=== PATIENT | female | born 1990 | race Caucasian/White ===

== ENCOUNTER 2025-08-28 02:16 | Inpatient (IN) | payer BC, SELFPAY ==
[2025-08-28] VITALS (99 sets, daily range): BP systolic 95–163; BP diastolic 54–113; PULSE 64–124; RESP 15–18; TEMP 35.9–37.4; O2SAT 91–100; BMI 27.3
--- NOTE | 2025-08-28 02:27 | ED.GENADUL_ITS ---
Discharge Plan Disposition Patient Disposition: Admit to [facility] Condition: Stable Discharge Details Clinical Impression: Third trimester , Uterine contractions Admit Date/Time: 08/28/25 02:36 Admit Provider: Tianna Salcedo Attending Provider: Tianna Salcedo Primary Care Provider: Unknown,Unknown ED Provider: Sage Agarwal Discharge Data Discharge Date/Time-TO BE ENTERED AT DEPARTURE: 08/28/25 02:41 HPI General Mode of arrival: EMS . Date/Time Provider Initiated Documentation: 08/28/25 02:27 . Limitations to Documentation: no limitations . Information obtained by: patient, EMS and RN notes reviewed . HPI Narrative: Patient presenting to ED by ambulance with bloody show and contractions at 40 weeks gestation. Patient is G3, P2. She has been followed at [facility] and was planning on delivering at [facility] but had moved toward this area. She was seen at [facility] 2 days ago and reports being at 4 cm and 60% effaced. She passed a large clot and had some bleeding about an hour ago with onset of contractions. She had called down to [facility]. Called EMS given the large clot and blood that she initially passed. She was transported here as closest facility with labor and delivery. We had contacted OB, Dr. Salcedo, who was present in the ED on arrival of patient with EMS. 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 VS per triage. HEENT: NC/AT. Normal facial exam. Neck: Supple. Trachea midline. Lungs: Normal respiratory effort. Cor: RRR without murmur. Good radial pulses. GI: Gravid abdomen, contractions present. Neuro: A+O x 3. Normal speech, mentation. Cranial nerves II - XII grossly int act. No gross motor or sensory deficit. Course Vital Signs Vital signs: Vital Signs Temperature 99.3 F 08/28/25 02:13 Pulse 110 H 08/28/25 02:13 Respiratory Rate 18 08/28/25 02:13 Blood Pressure 163/113 H 08/28/25 02:13 Pulse Oximetry 98 08/28/25 02:13 Temperature 99.3 F 08/28/25 02:13 Temperature Source Temporal Artery Scan 08/28/25 02:13 Pulse 110 H 08/28/25 02:13 Respiratory Rate 18 08/28/25 02:13 Blood Pressure 163/113 H 08/28/25 02:13 Pulse Oximetry 98 08/28/25 02:13 Oxygen Delivery Method Room Air 08/28/25 02:13 Oxygen Flow Rate 0 08/28/25 02:13 Medical Decision Making Patient met in ED on arrival by myself and OB, Dr. Salcedo. FHR normal. U/S by Dr. Salcedo with adequate fluid and baby head down. Patient will be moved to L&D for further management. She is stable. Labs drawn and sent on arrival. PFSH All Active Problems (Updated 08/28/25 @ 02:33 by Sage Agarwal MD) Uterine contractions (Acute) Third trimester (Acute) Social History Smoking risk assessment performed?: No
[2025-08-28 03:00] LABS: Abs Immature Grans 0.07 10^3/uL (0.0-0.06); HCT 36.3 % (36.0-46.0); HGB 12.4 g/dL (11.2-15.7); Immature Grans % 0.8 %; MCH 32.2 pg (27.0-33.0); MCHC 34.2 % (32.0-36.0); MCV 94 fL (80-95); MPV 10.7 fL (8.0-11.0); Platelet Count 213 10^3/uL (130-400); RBC 3.85 10^6/uL (3.93-5.22); RDW 13.1 % (11.7-14.6); RDW-SD 45.2 fL; WBC 8.92 10^3/uL (4.4-10.8)
[2025-08-28] MEDS: Penicillin G POT. 5,000,000 UNITS in Normal Saline 100 ML 200 UNITS IVPB (03:00)
[2025-08-28] MEDS: Lactated Ringers 1,000 ML 125 ML IV (03:05)
[2025-08-28 03:29] LABS: ALT 9 U/L (10-49); AST 16 U/L (<34); Albumin 3.7 g/dL (3.2-5.0); Alkaline Phosphatase 241 U/L (46-116); Anion Gap 10.8 mmol/L (3-11); BUN 13 mg/dL (9-23); Bilirubin, Total 0.4 mg/dL (0.2-1.2); CO2 21.2 mmol/L (20.0-31.0); Calcium 8.6 mg/dL (8.3-10.6); Chloride 107 mmol/L (98-107); Glucose 86 mg/dL (74-106); Potassium 3.7 mmol/L (3.5-5.1); Sodium 139 mmol/L (136-145); Total Protein 6.3 g/dL (5.7-8.2)
--- NOTE | 2025-08-28 03:37 | HPE_ITS ---
Date of service: 08/28/25 Time of Service: 03:37 Assessment and Plan Assessment and plan (1) 40 weeks gestation of : Status: Acute Assessment and plan: 35-year-old -0-0-2 ( x 1, x 1) at 40 weeks is dated by LMP equal to 10 wk US (HERMILO: 08/25/2025) - Rh+ / Rub I / VZV unknown / GBS positive - complicated by AMA (Panorama testing low risk; normal anatomy scan at [facility] [place] h/o (w/subsequent ), gestational HTN, GBS positive status - SROM to serosanguinous fluid at 0030, spontaneous labor, cephalic presentation - Desires epidural - Posterior placenta w/resolution of low lying status - Regular care at [facility] [place] - - - - - - - - - - - - - - - - - - - - 08/28/2025 (Denisse): Patient presents to our facility and appears to be frankly ruptured as a roughly midnight. She appears to be in an reassuring labor pattern and she verbalizes a strong, independent desire for trial of labor after . She is noted to be overall healthy with minimal complications in her . She has a posterior placenta and is a good candidate for TOLAC. She independently expresses understanding of the risks versus the benefits of section versus trial of labor. We discussed the potential for transfer to [facility] given this is where she has been receiving her care; patient is noted to be ruptured with bloody fluid and is in a reassuring labor pattern. Patient declines transfer. We will expectantly manage her labor and she will receive an epidural. OR team and anesthesia as well as myself and optical instrument repairer for potential assistance as needed have all been called in to remain in house while patient labors. Continuous monitoring. Vitals per protocol. Preeclampsia labs ordered. Penicillin ordered for GBS prophylaxis. Anticipate vaginal delivery. - - - - - - - - - - - - - - - - - - - - (2) History of section: Status: Chronic (3) History of vaginal after : Status: Acute (4) Positive GBS test: Status: Acute (5) Advanced maternal age in multigravida: Status: Acute (6) Gestational hypertension: Status: Acute OB-HPI Labor/Delivery History of Present Illness Reason for Visit: Trial of Labor Chief Complaint: Uterine Contractions; Suspected Rupture of Membranes , Associated Signs and Symptoms of Suspected ROM: frankly ruptured to serosanguineous fluid. History of Present Narrative: 35-year-old -0-0-2 ( x 1, x 1) at 40 weeks is dated by LMP equal to 10 wk US (HERMILO: 08/25/2025) presented to the emergency department this evening by way of ambulance for concerns surrounding vaginal bleeding and contra ctions. Patient states she had a large clot around midnight followed by a gush of bloody fluid. She has been getting routine care at [facility], and she did attempt to reach out to their on-call team; however, she ultimately came to our hospital based on recommendation for presentation to the nearest hospital for expeditious assessment. Record suggest patient has a history of low-lying placenta diagnosed early in the , though resolved on subsequent ultrasounds; placenta is also noted to be posterior. is further complicated by advanced maternal age as well as concerns for possible gestational hypertension; at a visit on August 23, the patient was noted to have modestly elevated blood pressures. She was reassessed 4 hours later and was found to be normotensive. An assessment was repeated 2 days later and she remained normotensive. Patient denies any history of chronic hypertension nor she having any signs or symptoms of preeclampsia. Record suggest a history of gestational diabetes and a prior ; however, testing in this has been appropriate. She reports that her first was done for prolonged labor, but that she had a successful with her second and delivered quickly. She denies any history of hemorrhage or concerning tears. Review of Systems Narrative: Review of system is negative except for that mentioned in the HPI and remaining note. PFSH All Active Problems (Updated 08/28/25 @ 03:49 by Tianna Salcedo DO) Gestational hypertension (Acute) Advanced maternal age in multigravida (Acute) Positive GBS test (Acute) History of vaginal after (Acute) History of section (Chronic) 40 weeks gestation of (Acute) Uterine contractions (Acute) Third trimester (Acute) Social History Smoking risk assessment performed?: No Meds Allergies and Home Medications Allergies Allergy/AdvReac Type Severity Reaction Status Date / Time No Known Allergies Allergy Unverified 08/28/25 02:22 Home Medications ?Medication ?Instructions ?Recorded ?Confirmed ?Type famotidine 20 mg tablet (Acid 20 mg PO DAILY 08/28/25 08/28/25 History [employer]ing [employer] Supervisor (famotidine)) loratadine 10 mg tablet (Claritin) 10 mg PO DAILY 08/0308/28/25 History vitamin-ferrous sulfate tab PO 08/28/25 Hist ory 27 mg iron-folic acid 0.8 mg tablet Exam Physical Exam Vital signs: Temp Pulse Resp BP Pulse Ox 98.0 F 116 H 18 132/85 100 08/28/25 03:06 08/28/25 03:37 08/28/25 03:06 08/28/25 03:33 08/28/25 03:37 Narrative: General: Well-nourished female in no immediate distress; uncomfortable with contractions Pulm: No overt respiratory distress; able to speak in complete sentences Abdomen: Gravid, nontender Extremities: No overt swelling Psych: Cooperative, appropriate SVE: 4-5/80/-2; cephalic. Serosanguineous discharge appreciated on exam. Complete transabdominal ultrasound confirms cephalic presentation and subjectively low fluid FHT: Category 1 [place] every 2 to 4; without augmentation Detailed Labor and Delivery Exam Dilation: 4.5 Effacement (%): 80 station: -2 Cervix position: mid Consistency: soft Graves Score: Cervical Points Exam 0 1 2 3 Dilation Closed 1-2cm 3-4 cm 5-6cm Effacement 0-30% 40-50% 60-70% 80% Consistency Firm Medium Soft Station -3 -2 -1,0 +1,+2 Position Posterior Mid Anterior GRAVES Score(Cervical Ripeness Score): 9 Amniotic Membrane Status: Ruptured Rupture Method: Spontaneous Amniotic Fluid: Bloody Monitor Mode: External Contraction Frequency(min): q2-4 Contraction Duration(sec): appropriate Contraction Intensity: Moderate Fetus A Heart Rate Baseline: 120 Monitor Accelerations: 15 X 15 Monitor Decelerations: None Variability: Moderate (6-25 BPM) Presentation: Cephalic Categories: Category I Est. Weight: 7 lb 8 oz Date of Membrane Rupture: 08/28/25 Time of Membrane Rupture: 00:30 Results Results Group Beta Strep: Positive Blood Type: A+ Rubella Status: Immune Varicella Immunity: Not Tested Lab Results: Hepatitis C, HIV, syphilis all negative as of 01/27/2025. Hemoglobin A1c of 4.9 as of 01/27/2025. Panorama testing low risk, female as of 01/27/2025. Gonorrhea chlamydia negative as of 01/20/2025. Urine culture negative as of 01/21/2025 last Pap smear performed 11/30/2024 negative cytology negative HPV. 3hr OGTT F87, 1hr 101, 2hr 129, 3hr 85 as of 06/11/2025. Abnormal Lab Findings: Abnormal Labs 08/28/25 02:28 RBC 3.85 L ALT 9 L Alkaline Phosphatase 241 H Risk Assessment Risks Reviewed Risks Reviewed Upon Admission: Yes
--- NOTE | 2025-08-28 04:34 | ANES.PREOP_ITS ---
General Info Date of Service Date Performed: 08/28/25 Height: 5 ft Weight: 63.503 kg Body Mass Index (BMI): 27.3 Meds Allergies and Home Medications Allergies Allergy/AdvReac Type Severity Reaction Status Date / Time No Known Allergies Allergy Unverified 08/28/25 02:22 Home Medication ?Medication ?Instructions ?Recorded famotidine 20 mg tablet (Acid 20 mg PO DAILY 08/28/25 [employer] (famotidine)) loratadine 10 mg tablet (Claritin) 10 mg PO DAILY 08/03 03/26 vitamin-ferrous sulfate tab PO 08/28/25 27 mg iron-folic acid 0.8 mg tablet Current Visit Medications: Current Medications Generic Name Dose Route Start Last Admin Trade Name Freq PRN Reason Stop Dose Admin Fentanyl/Ropivacaine 200 ml 08/28/25 03:00 Fentanyl/Ropivacaine 2 Mcg/Ml And 0.1% 200 Ml [place]add Cassette EP DIRECTED JACEY Ringer's Solution 1,000 mls @ 150 mls/hr 08/28/25 03:00 IV INFUSION JACEY Ringer's Solution 1,000 mls @ 125 mls/hr 08/28/25 03:00 08/28/25 03:05 IV 125 mls/hr INFUSION JACEY Administration Sodium Chloride 0 ml 08/28/25 02:50 Normal Saline Flush 10 Ml Syr IVP PRN PRN Sodium Chloride 0 ml 08/28/25 08:30 Normal Saline Flush 10 Ml Syr IVP BID JACEY Sodium Chloride 0 ml 08/28/25 02:50 Normal Saline 10 Ml Vial IJ DIRECTED PRN PFSH Active Problems Active Problems: Problem Status Onset Code Gestational hypertension Acute O13.9 Advanced maternal age in multigravida Acute O09.529 Positive GBS test Acute B95.1 History of vaginal after Acute Z98.891 History of section Chronic Z98.891 40 weeks gestation of Acute Z3A.40 Uterine contractions Acute O47.9 Third trimester Acute Z34.93 Vital Signs and Lab Results Vital Signs Most Recent Vital Signs in EMR: Most Recent Vital Signs Temp Pulse Resp BP Pulse Ox 36.7 C 120 H 18 122/66 97 08/28/25 03:06 08/28/25 04:29 08/28/25 03:06 08/28/25 04:29 08/28/25 04:24 Lab Results 08/28/25 02:28 08/28/25 02:28 Blood Type / Crossmatch: 2 Antibody Screen NEGATIVE Today Complete Blood Count: 2 WBC, (4.4-10.8) 8.92 10^3/uL Today, 02:28 RBC, (3.93-5.22) 3.85 10^6/uL L Today, 02:28 Hgb, (11.2-15.7) 12.4 g/dL Today, 02:28 Hct, (36.0-46.0) 36.3 % Today, 02:28 Plt Count, (130-400) 213 10^3/uL Today, 02:28 Complete Metabolic Panel: 2 Sodium, (136-145) 139 mmol/L Today, 02:28 Potassium, (3.5-5.1) 3.7 mmol/L Today, 02:28 Chloride, (98-107) 107 mmol/L Today, 02:28 Carbon Dioxide, (20.0-31.0) 21.2 mmol/L Today, 02:28 BUN, (9-23) 13 mg/dL Today, 02:28 Creatinine, (0.55-1.02) 0.77 mg/dL Today, 02:28 Est GFR (CKD-EPI 2020), (mL/min/1.73m2) 85.07 Today, 02:28 Calcium, (8.3-10.6) 8.6 mg/dL Today, 02:28 Albumin, (3.2-5.0) 3.7 g/dL Today, 02:28 Glucose, (74-106) 86 mg/dL Today, 02:28 Liver Function Panel: 2 ALT, (10-49) 9 U/L L Today, 02:28 AST, (<34) 16 U/L Today, 02:28 Anesthesia Assessment and Plan Anesthesia History Personal History: No History of Anesthesia Complications Family History: No Family History of Anesthesia Complications Exercise Tolerance Exercise Tolerance: Metabolic Equivalents>4 Pertinent Negatives Pertinent Negatives: No Symptoms of GERD Cardiac & Pulmonary Exam Cardiac Exam: Normal S1/S2 Heart Sounds Pulmonary Exam: Clear Bilateral Breath Sounds Implantable Cardiac Device Does patient have a Pacemaker or an ICD?: No Airway Exam Known Difficult Airway: No Mallampati Class: 2 Mouth Opening: Normal (> 3cm) Thyromental Distance: Greater than 3 cm Neck Range of Motion: Full ROM Neck Circumference: Normal Teeth Condition: Normal Dentition ASA Classification ASA Score: ASA 2 Emergency Case?: No NPO Status NPO Status: NPO Clears >2 hours, Solids >8 hours Status Status: Confirmed (40 weeks) Anesthesia Plan Resuscitation Status: Full Code Anesthesia Technique: Labor Epidural Airway Planned: Natural Airway Monitors Used: Standard Monitors
[2025-08-28] MEDS: FentaNYL/ROPIvacaine 2 mcg/ml and 0.1% 200 ML CADD Cassette EP (04:35)
--- NOTE | 2025-08-28 04:36 | W.ANESNEU ---
Epidural/Spinal Catheter Date Performed: 08/28/25 Procedure Start: 03:15 Procedure Stop: 03:45 Requesting Provider: Tianna Salcedo Procedure Location: Obstetrics Reason Performed: Labor Epidural Standard Monitors Applied: ECG, Blood Pressure, SpO2 and See EMR for corresponding vital signs Patient Position: Sitting Sedation Given (Indicate Dose Given): No Sedation given Patient Mental Status: Awake Sterility: Hand Hygiene, Surgical Cap, Surgical Mask, Sterile Gloves, Sterile Drape/Sheet, Eye Protection and Chlorhexidine Procedure Location: L3-L4 Interspace Epidural Needle: Tuohy 18 Gauge Needle Length: 3.5 Inch Needle Approach: Midline Epidural Procedure: Skin Prepped, Sterile Drape Placed, 1% Lidocaine to skin and subcutaneous tissue with 25G needle, Tuohy Needle placed, EDELMIRA to Saline Used, Epidural Catheter Placed, Negative Heme, Negative CSF Flow and Tuohy Needle Removed Catheter Placed?: Catheter Placed Test Dose (Indicate Dose Given): 3ml 1.5% Lidocaine with 1:200K Epinephrine Given and Negative Test Dose Loss of Resistance Depth (cm): 5 Catheter depth at skin (cm): 12 Dressing: [place] Dressing Placed, Tegaderm Applied, Mastisol Used and Dressing reinforced with Tape Epidural Provider Bolus (Indicate Dose Given): Total Ropivacaine 0.1% with Fentanyl 2mcg/ml Given from pump. (ml) (off pump) Dose:: 6cc Additives (Indicate Dose Given ): None Infusion Medication: Medication Infusion Began Medication Infusion: Ropivacaine 0.1% with Fentanyl 2mcg/ml Maintenance Infusion Rate (ml/hour): 10 PCEA Bolus Dose (ml): 5 Block Level: T8 Paresthesia: None Ultrasound: Used to reji site Number of Attempts (See previous attempts in note section): 1 Procedure Tolerated: No Complications and Patient tolerated well Procedure Outcome: Successful Performed By: Abraham Danielle
[2025-08-28 05:14] LABS: Prot/Crea Ur Ratio 0.19 mg/mg Cr
--- NOTE | 2025-08-28 06:06 | PGE_ITS ---
Date of Service Date of service: 08/28/25 Time of Service: 06:06 Assessment and Plan Assessment and plan (1) Gestational hypertension: Status: Acute (2) Positive GBS test: Status: Acute (3) Advanced maternal age in multigravida: Status: Acute (4) History of vaginal after : Status: Acute (5) History of section: Status: Chronic (6) 40 weeks gestation of : Status: Acute (7) Uterine contractions: Status: Acute (8) Third trimester : Status: Acute Assessment and plan: 35-year-old -0-0-2 ( x 1, x 1) at 40 weeks is dated by LMP equal to 10 wk US (HERMILO: 08/25/2025) - Rh+ / Rub I / VZV unknown / GBS positive - complicated by AMA (Panorama testing low risk; normal anatomy scan at [facility] [place]), h/o (w/subsequent ), gestational HTN, GBS positive status - SROM to serosanguinous fluid at 0030, spontaneous labor, cephalic presentation - Desires epidural - Posterior placenta w/resolution of low lying status - Regular care at [facility] [place] - - - - - - - - - - - - - - - - - - - - 08/28/2025 @ 0300 (Denisse): Patient presents to our facility and appears to be frankly ruptured as a roughly midnight. She appears to be in an reassuring labor pattern and she verbalizes a strong, independent desire for trial of labor after . She is noted to be overall healthy with minimal complications in her . She has a posterior placenta and is a good candidate for TOLAC. She independently expresses understanding of the risks versus the benefits of section versus trial of labor. We discussed the potential for transfer to [facility] given this is where she has been receiving her care; patient is noted to be ruptured with bloody fluid and is in a reassuring labor pattern. Patient declines transfer. We will expectantly manage her labor and she will receive an epidural. OR team and anesthesia as well as myself and non destructive testing supervisor for potential assistance as needed have all been called in to remain in house while patient labors. Continuous monitoring. Vitals per protocol. Preeclampsia labs ordered. Penicillin ordered for GBS prophylaxis. Anticipate vaginal delivery. 08/28/2025 @ 0643 (Denisse): Called to the room by RN to assess recent bleeding. Patient has had a notable increase in bleeding since her last exam. Her tracing is overall reassuring with a category 1 strip and regular contractions; however, she has had minimal change in her cervix over the course of several hours despite regular contractions, and I fear that on my exam I am palpating an appreciable amount of clot in the posterior fornix. I discussed my concerns with the patient. We had a thorough discussion regarding risks and benefits of continued pursuit of vaginal delivery versus pursuing section. Patient expressed independent interest in a section. We reviewed, that as with anytime we break the skin, there is always a risk of bleeding, infection, damage to surrounding tissues, as well as blood clots to the legs into the lungs. We discussed that there are risks associated with anesthesia as well as the potential for unforeseen complications. We discussed that there is a risk for the need for blood transfusion. We discussed that blood transfusion is considered a tissue transfusion so we watch for tissue reactions. We discussed that blood transfusion comes with the remote chance of transmission of blood-borne pathogen such as HIV and hepatitis. Patient v erbalized understanding and all questions were answered to the patient and her satisfaction. They would like to proceed with section. Patient was consented for section. - - - - - - - - - - - - - - - - - - - - Subjective Subjective Patient reports: no new complaints Interval history since last seen: Patient resting comfortably with epidural in place. Exam Narrative Exam Narrative: general: Well nourished female comfortable with epidural resp: No respiratory distress abd: gravid, non-tender ext: no edema SVE: Notable blood noted in the marry. Cervix is 5-6\80\-2; notably soft, clots appreciated in the posterior fornix FHT: Cat 1 [place]: q2-4; not augmented Objective Last Vital Signs Temp 98.0 F 08/28/25 03:06 Pulse 98 H 08/28/25 05:58 Resp 18 08/28/25 03:06 BP 113/61 08/28/25 05:58 Pulse Ox 97 08/28/25 04:24 Laboratory Results - last 24 hr 08/28/25 08/28/25 08/28/25 02:28 02:53 04:30 WBC 8.92 Cancelled RBC 3.85 L Cancelled Hgb 12.4 Cancelled Hct 36.3 Cancelled MCV 94 Cancelled MCH 32.2 Cancelled MCHC 34.2 Cancelled RDW 13.1 Cancelled Plt Count 213 Cancelled MPV 10.7 Cancelled Immature Gran % 0.8 Cancelled Neutrophils % 67.0 Cancelled Band Neutrophils % Cancelled Lymphocytes % 22.3 Cancelled Atypical Lymphs % Cancelled Monocytes % 8.6 Cancelled Eosinophils % 0.9 Cancelled Basophils % 0.4 Cancelled Metamyelocytes % Cancelled Myelocytes % Cancelled Promyelocytes % Cancelled Other Cells % Cancelled Nucleated RBC % 0.0 Cancelled Absolute Neutrophils 5.97 Cancelled Absolute Lymphocytes 1.99 Cancelled Absolute Monocytes 0.77 Cancelled Absolute Eosinophils 0.08 Cancelled Absolute Basophils 0.04 Cancelled RBC Morphology Cancelled Polychromasia Cancelled Hypochromasia Cancelled Poikilocytosis Cancelled Basophilic Stippling Cancelled Anisocytosis Cancelled Microcytosis Cancelled Macrocytosis Cancelled Spherocytes Cancelled Tear Drop Cells Cancelled Ovalocytes Cancelled Stomatocytes Cancelled Carranza-Metzger Bodies Cancelled Green Cells/Echinocytes Cancelled Acanthocytes (Spur) Cancelled Schistocytes Cancelled Sodium 139 Potassium 3.7 Chloride 107 Carbon Dioxide 21.2 Anion Gap 10.8 BUN 13 Creatinine 0.77 Est GFR (CKD-EPI 2020) 85.07 Glucose 86 Calcium 8.6 Total Bilirubin 0.4 AST 16 ALT 9 L Alkaline Phosphatase 241 H Total Protein 6.3 Albumin 3.7 Ur Random Creatinine 115.80 U Random Total Protein 22.9 H U [place] Prot/Creat Ratio 0.19 ABO/Rh A Positive Antibody Screen NEGATIVE VTE Prohylaxis Risk Level: Moderate/High Risk Contraindications: Active bleed/high bleed risk Prophylaxis: Mechanical Time Spent with Patient Time Spent with Patient: 35-49 minutes Time was spent: preparing to see the patient(eg.review tests), obtaining and/or reviewing separately otained hiistory, ordering medications,tests, procedures, referring, communicating with other health weekend caregiver, indepentently interpreting results, counseling the patient and care coordination
[2025-08-28] MEDS: AZITHROMYCIN 500 MG in Normal Saline 250 ML 250 MG IVPB (06:52)
[2025-08-28 06:54] LABS: Abs Immature Grans 0.07 10^3/uL (0.0-0.06); HCT 36.4 % (36.0-46.0); HGB 12.4 g/dL (11.2-15.7); Immature Grans % 0.6 %; MCH 32.5 pg (27.0-33.0); MCHC 34.1 % (32.0-36.0); MCV 95 fL (80-95); MPV 10.6 fL (8.0-11.0); Platelet Count 212 10^3/uL (130-400); RBC 3.82 10^6/uL (3.93-5.22); RDW 12.9 % (11.7-14.6); RDW-SD 44.7 fL; WBC 11.23 10^3/uL (4.4-10.8)
[2025-08-28] MEDS: ceFAZolin 2 GM/50 ML BAG IVPB (07:25)
[2025-08-28] MEDS: Bupivacaine 0.25% Pres-Free 30 ML VIAL (08:06)
--- NOTE | 2025-08-28 08:09 | W.ANESNEU ---
Epidural/Spinal Cath. Removal Date Performed: 08/28/25 Procedure Time: 07:09 Catheter Removal Type: Epidural Catheter Procedure Location: Operating Room Patient Position: Sitting Catheter Removal Procedure: Dressing Removed, Catheter Removed without Resistance and Catheter Tip Intact Paresthesia: None Procedure Tolerated: No Complications and Patient tolerated well Procedure Outcome: Successful Performed By: Abraham Danielle
--- NOTE | 2025-08-28 09:00 | W.ANESPOSTOP ---
Postoperative Evaluation Date, Time and Location Date Performed: 08/28/25 Time Performed: 08:45 Patient Location: Obstetrics Vital Signs Most Recent Imported Vital Signs: Most Recent Vital Signs Temp Pulse Resp BP Pulse Ox 36.7 C 92 H 18 130/68 93 08/28/25 03:06 08/28/25 08:59 08/28/25 03:06 08/28/25 08:59 08/28/25 08:56 Assessment Mental Status: Awake (Alert & Oriented to Patient Baseline) Airway and Respiratory Function: Patent airway with normal (patient baseline) respiratory exam Cardiovascular Function: Hemodynamically Stable Hydration Status: Adequately Hydrated Nausea & Vomiting: No Nausea or Vomiting Pain: Pt. Denies Any Pain Peripheral Nerve Block: Other (SAB not completely resolved.)
[2025-08-28 09:07] LABS: Abs Immature Grans 0.08 10^3/uL (0.0-0.06); HCT 35.4 % (36.0-46.0); HGB 11.8 g/dL (11.2-15.7); Immature Grans % 0.7 %; MCH 32.3 pg (27.0-33.0); MCHC 33.3 % (32.0-36.0); MCV 97 fL (80-95); MPV 10.8 fL (8.0-11.0); Platelet Count 194 10^3/uL (130-400); RBC 3.65 10^6/uL (3.93-5.22); RDW 12.9 % (11.7-14.6); RDW-SD 46.2 fL; WBC 12.00 10^3/uL (4.4-10.8)
--- NOTE | 2025-08-28 09:23 | W.PM.OP ---
Operative Note Operative Note PRE-OP DIAGNOSIS: Excessive bleeding during trial of labor POST-OP DIAGNOSIS: other (Placental abruption) PROCEDURE: Low-transverse section SURGEON: Tianna Salcedo ASSISTING SURGEON: Brenda Cheung ANESTHESIA TYPE: Spinal Refer to Anesthesia Record ESTIMATED BLOOD LOSS: 380 PATHOLOGY: other (Placenta) Patient was transported to: floor Patient's condition: stable Indications: 35-year-old -0-0-2 ( x 1, x 1) was undergoing a trial of labor at 40 weeks after presenting to our hospital in active labor. Patient initially presented through the emergency department for concerns surrounding a gush of bleeding and contractions. She was found to be frankly ruptured and in active labor. She received an epidural and was expectantly managed. Over the course of her laboring, she was noted to have a concerning increase in the amount of vaginal bleeding. On her final exam she had copious clots and was ultimately consented for a section. Findings: Modest scar tissue throughout all the layers. Intact uterus with prominent, thin window in the lower uterine segment. Large clot evacuated from behind the placenta. Viable baby girl in cephalic presentation. Normal-appearing posterior wall, fallopian tubes, and ovaries. Procedure Description: Patient was taken to the OR with IV fluids running.? She received 2 grams of Ancef and 500 mg of azithromycin for prophylaxis prior to heading to the OR. Her epidural was removed and spinal anesthesia was established. The patient was positioned into supine positioning with her arms abducted at her sides.? The vagina was prepped with Betadine.? A hansen catheter was inserted using sterile technique. The abdomen was prepped with Chlorohexedine and allowed to dry for three minutes.? The patient was then draped in the usual, sterile fashion, and the bed was placed at a leftward tilt.? The abdomen was marked with the intended pfannestiel site. A timeout was performed; the patient and procedure were identified.? Testing of the levels of anesthesia was found to be adequate.?? A Pfannenstiel incision was created with scalpel and carried down to the level of the fascia with bovie cautery.? The fascia was incised, and the incision was carried laterally with curved marcano scissors. The anterior leaf of fascia was then tented up with kocker claps, and the underlying rectus muscle was dissected off with a combination of blunt and sharp dissection.? The same was done for the inferior leaf.? The midline of the rectus was identified and bluntly dissected revealing the underlying peritoneum.? The peritoneum was tented up with stats and incised with metzenbaum scissors after assuring no underlying bowel.? A large Ba retractor was placed.? The bladder was noted to be sufficiently low from the lower uterine segment.? A low transverse incision was made using a fresh #10 blade, and the incision was very carefully extended using blunt traction given the prominently thin nature of the lower uterine segment.? Upon creation of the hysterotomy, a sizable blood clot occupying the majority of the left-posterior wall behind the placental membranes was evacuated. The fetus was presenting as a vertex. The head was brought to the level of the hysterotomy with careful attention to avoid using the incision as a fulcrum.? The rest of the body followed easily with gentle fundal pressure from the facilities assistant. After one minute of delayed cord clamping, the cord was clamped twice and cut and the baby transferred to the warmer, awaiting the pediatric staff.? Pitocin was initiated.? A section of cord was collected and set aside for gases as needed, and cord blood was obtained. The placenta was then delivered with assistance and fundal massage. The uterus was explored to ensure all tissue was cleared. The uterus was then exteriorized for better visualization and wrapped in a moistened lap.? Ring forceps were used to grasp the lower uterine segment, and the uterine incision was closed with a running locked layer of 0 Vicryl.? A second layer of 0 Vicryl imbricating stitch was used to secure the hysterotomy.? An initial assessment found in the hysterotomy hemostatic.??? Stats were used to grasp the peritoneum, and the layer was closed using a running 2-0 vicryl with careful attention to guard any underlying bowel with retraction.? Careful inspection of the rectus muscle appreciated good hemostasis.? The right apex of the fascia was secured with a kocker clamp, and the fascia was then closed with a running 0-vicryl.? Careful inspection of the subcuticular tissues appreciated good hemostasis, and this layer was closed with a running 3-0 vicryl.? 20 cc's of 0.25% Marcaine was injected into the subcuticular tissues, and hemostasis was again confirmed.? The skin was reapproximated with a 4-0 vicryl subcuticular stitch.? From The patient tolerated the procedure well.? The incision was cleaned and covered with a telfa sheet, ABD pad, and medipore tape.? She was then taken to the PACU in good condition. Date of Procedure: 08/28/25
--- NOTE | 2025-08-28 09:57 | W.PM.OBCSECT ---
Operative Note Operative Note POST-OP DIAGNOSES: other (Placental abruption) PROCEDURE: Low-transverse section SURGEON: Tianna Salcedo Estimated blood loss (mL): 380 Pathology: other (Placenta) Patient was transported to: floor Patient's condition: stable
[2025-08-28] MEDS: ACETAMINOPHEN 1,000 MG/100 ML BAG 400 MG IVPB (10:01)
[2025-08-28] MEDS: Ketorolac 30 MG/ML VIAL IVP ×2 (10:01→18:33)
[2025-08-28] MEDS: oxyCODONE 5 MG TAB PO ×2 (18:35→22:32)
[2025-08-28] MEDS: Acetaminophen 325 MG TAB 650 MG PO ×2 (18:44→22:33)
[2025-08-28] MEDS: Docusate Sodium 100 MG CAP PO (22:33)
[2025-08-29] MEDS: Ketorolac 30 MG/ML VIAL IVP ×2 (00:32→06:30)
[2025-08-29 00:39] VITALS: BP 92/79; PULSE 83; RESP 16; TEMP 36.7
[2025-08-29] MEDS: oxyCODONE 5 MG TAB PO ×5 (02:33→19:19)
[2025-08-29] MEDS: Acetaminophen 325 MG TAB 650 MG PO ×5 (02:34→19:19)
[2025-08-29 05:35] VITALS: BP 100/71; PULSE 84; RESP 16; TEMP 36.9
[2025-08-29 08:09] VITALS: BP 111/88; PULSE 77; RESP 18; TEMP 36.6; O2SAT 97
[2025-08-29] MEDS: Normal Saline Flush 10 ML SYR IVP (08:30)
[2025-08-29] MEDS: Ibuprofen 600 MG TAB PO ×2 (12:33→22:36)
[2025-08-29 13:06] VITALS: BP 114/70; PULSE 70; RESP 18; TEMP 36.5; O2SAT 98
[2025-08-29 13:07] LABS: HCT 31.5 % (36.0-46.0); HGB 10.6 g/dL (11.2-15.7); MCH 32.2 pg (27.0-33.0); MCHC 33.7 % (32.0-36.0); MCV 96 fL (80-95); MPV 10.5 fL (8.0-11.0); Platelet Count 208 10^3/uL (130-400); RBC 3.29 10^6/uL (3.93-5.22); RDW 12.9 % (11.7-14.6); RDW-SD 45.1 fL; WBC 12.14 10^3/uL (4.4-10.8)
[2025-08-29 16:42] VITALS: BP 105/77; PULSE 77; RESP 18; TEMP 36.8; O2SAT 97
[2025-08-29] MEDS: Docusate Sodium 100 MG CAP PO (19:19)
[2025-08-29 19:40] VITALS: BP 125/75; PULSE 82; RESP 18; TEMP 36.6
[2025-08-30] MEDS: Acetaminophen 325 MG TAB 650 MG PO ×4 (02:27→20:11)
[2025-08-30] MEDS: oxyCODONE 5 MG TAB PO ×4 (02:28→20:10)
[2025-08-30] MEDS: Ibuprofen 600 MG TAB PO ×4 (05:24→23:01)
[2025-08-30 08:00] VITALS: BP 108/68; PULSE 82; RESP 18; TEMP 36.5; O2SAT 97
[2025-08-30 12:00] VITALS: BP 121/78; PULSE 69; RESP 16; TEMP 36.7
[2025-08-30] MEDS: Docusate Sodium 100 MG CAP PO (16:54)
[2025-08-30 21:36] VITALS: BP 126/78; PULSE 71; RESP 18
[2025-08-31] MEDS: oxyCODONE 5 MG TAB PO ×2 (01:55→08:38)
[2025-08-31] MEDS: Acetaminophen 325 MG TAB 650 MG PO ×2 (01:55→08:38)
[2025-08-31] MEDS: Ibuprofen 600 MG TAB PO (04:58)
[2025-08-31] MEDS: Docusate Sodium 100 MG CAP PO (08:38)
[2025-08-31 08:40] VITALS: BP 118/89; PULSE 79; RESP 16; TEMP 36.5; O2SAT 97
== END 2025-08-31 11:30 | disposition home or self-care (01) | DRG 788 ==
LOC: ER 02:36 → OBS 02:38
PROVIDERS: Admitting Provider Obstetrics & Gynecology; Emergency Provider Emergency Medicine; PCP Internal Medicine; Visit Provider Obstetrics & Gynecology
PROC: 10D00Z1 Extraction of Products of Conception, Low, Open Approach (ICD-10-PCS; CPT 59514; principal; 2025-08-28 07:00)
DX: O45.8X3 Other premature separation of placenta, third trimester (principal); O99.824 Streptococcus B carrier state complicating childbirth; Z37.0 Single live birth; O34.211 Maternal care for low transverse scar from previous cesarean delivery; N85.8 Other specified noninflammatory disorders of uterus; O66.41 Failed attempted vaginal birth after previous cesarean delivery; O13.4 Gestational [pregnancy-induced] hypertension without significant proteinuria, complicating childbirth; Z3A.40 40 weeks gestation of pregnancy
CPT/HCPCS: 59514; 36415; 80053; 85027; 86850; 86900; 86901; 82565; 84156; 85025; 88307; J0131; J0456; J0665; J0690; J1100; J1885; J2274; J2371; J2405; J2540; J3010